=== PATIENT | female | born 1990 | race African-American/Black ===

== ENCOUNTER 2018-11-07 04:40 | Emergency (ER) | payer SELFPAY ==
[2018-11-07 04:55] VITALS: BP 108/61; PULSE 83; TEMP 98.8; BMI 26.5
[2018-11-07] MEDS ORDERED: PYRIDOXINE HCL 100 MG/1 ML VIAL IM ONE (05:19)
[2018-11-07] MEDS ORDERED: SODIUM CHLORIDE 1,000 ML IV STA (05:19)
--- NOTE | 2018-11-07 05:37 | PDOC ---
Attending Attestation - Resident Resident Name: Denzel Perdue - ED Attending Attestation I have performed the following: I have examined & evaluated the patient, The case was reviewed & discussed with the resident, I agree w/resident's findings & plan - HPI HPI: 11/07/18 20:42 28-year-old female gravid female, 32 weeks already cleared by labor and delivery with nausea and vomiting, visiting from [place] 11/07/18 20:47 - Physicial Exam PE: 11/07/18 20:48 agree with resident exam - Medical Decision Making 11/07/18 20:48 28 yo female with nausea and vomiting x 1 week, 32 weeks GA, cleared by L and D labs performed from L and D suggest UTI pt feeling better after IVF and pyridoxine 11/07/18 20:55
--- NOTE | 2018-11-07 06:10 | PDOC ---
History of Present Illness - General Chief Complaint: Lightheaded Stated Complaint: DIZZINESS,VOMITING Time Seen by Provider: 11/07/18 05:17 - History of Present Illness Initial Comments: 11/07/18 06:10 28f , currently 32 weeks , cleared from L&D, coming for nausea and vomiting for the past week. Unable to keep anything down. Had similar vomiting during previous preg but never lasted a week. Vising family from [place]. Lab work from l&D unremarkable except + for marijuana. Past History - Past Medical History Allergies/Adverse Reactions: Allergies Allergy/AdvReac Type Severity Reaction Status Date / Time Penicillins Allergy Verified 11/07/18 03:18 Home Medications: Ambulatory Orders Nitrofurantoin Macrocrystal [Nitrofurantoin] 100 mg PO BID 5 Days #10 capsule - Suicide/Smoking/Psychosocial Hx Smoking History: Current some day smoker Information on smoking cessation initiated: No Hx Alcohol Use: Yes (Ocassional) Drug/Substance Use Hx: Yes Review of Systems - Review of Systems Able to Perform ROS?: Yes Is the patient limited Somali proficient: No Constitutional: No: Symptoms Reported HEENTM: No: Symptoms Reported Respiratory: No: Symptoms reported Cardiac (ROS): No: Symptoms Reported ABD/GI: Yes: See HPI : No: Symptoms Reported Musculoskeletal: No: Symptoms Reported Integumentary: No: Symptoms Reported Neurological: No: Symptoms reported *Physical Exam - Vital Signs Last Vital Signs Temp Pulse Resp BP Pulse Ox 98.8 F 83 18 108/61 98 11/07/18 04:40 11/07/18 04:40 11/07/18 04:40 11/07/18 04:40 11/07/18 04:40 - Physical Exam General Appearance: Yes: Nourished, Appropriately Dressed. No: Apparent Distress HEENT: positive: EOMI, SUSIE, Normal ENT Inspection Respiratory/Chest: positive: Lungs Clear, Normal Breath Sounds. negative: Chest Tender, Respiratory Distress Cardiovascular: positive: Regular Rhythm, Regular Rate, S1, S2 Gastrointestinal/Abdominal: positive: Normal Bowel Sounds, Tender (diffuse from retching), Soft, Protuberent Musculoskeletal: positive: Normal Inspection. negative: CVA Tenderness Extremity: positive: Normal Capillary Refill, Normal Inspection, Normal Range of Motion Integumentary: positive: Normal Color, Dry, Warm Neurologic: positive: Fully Oriented, Alert, Normal Mood/Affect, Normal Response , Motor Strength /5 Medical Decision Making - Medical Decision Making 11/07/18 06:13 28f 32w preg coming for 1 week of nausea and vomiting. Hyperemesis of preg vs cannabinoid. As the patient doesn't look hypovolemic, reasonable to start IV fluids and Pyridoxine IM and reassess. 11/07/18 06:59 Patient fell asleep. No vomiting in the Ed. Will send home with follow up. *DC/Admit/Observation/Transfer Diagnosis at time of Disposition: Vomiting, UTI (urinary tract infection) - Discharge Dispostion Disposition: HOME Condition at time of disposition: Fair Decision to Admit order: No - Prescriptions Prescriptions: Nitrofurantoin Macrocrystal [Nitrofurantoin] 100 mg PO BID 5 Days #10 capsule - Referrals - Patient Instructions Printed Discharge Instructions: DI for Urinary Tract Infection (UTI) Additional Instructions: Come back to the emergency department for any new, worsening or concerning symptom. 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 Take twice a day for 5 days. - Post Discharge Activity
[2018-11-07] MEDS ORDERED: NITROFURANTOIN MACROCRYSTAL 50 MG CAPSULE (FP) PO SCH (06:45)
[2018-11-07] MEDS ORDERED: NITROFURANTOIN MACROCRYSTAL 50 MG CAPSULE (FP) ONE (07:07)
== END 2018-11-07 07:16 | disposition home or self-care (01) ==
LOC: JER 04:40
PROC: 3E0337Z Introduction of Electrolytic and Water Balance Substance into Peripheral Vein, Percutaneous Approach (ICD-10-PCS; principal; 2018-11-07)
PROC: 3E023GC Introduction of Other Therapeutic Substance into Muscle, Percutaneous Approach (ICD-10-PCS; 2018-11-07)
DX: O23.43 Unspecified infection of urinary tract in pregnancy, third trimester (principal); Z3A.32 32 weeks gestation of pregnancy; R11.2 Nausea with vomiting, unspecified
CPT/HCPCS: 99282-25; J7030